=== PATIENT | male | born 2000 | race Caucasian/White ===

== ENCOUNTER 2021-05-27 11:37 | Outpatient (CLI) | payer OTHER, SELFPAY | END 2021-05-27 23:59 | disposition home or self-care (01) | LOC: IMMUN 05-31 11:47 | PROVIDERS: Visit Provider Family Medicine | DX: Z23 Encounter for immunization (principal) ==

== ENCOUNTER 2024-09-19 11:02 | Emergency (ER) | payer OTHER, SELFPAY ==
[2024-09-19 11:03] VITALS: BP 138/102; PULSE 96; RESP 14; TEMP 35.5; O2SAT 98; BMI 27.7
--- NOTE | 2024-09-19 11:25 | EX.ED.DYSGE1 ---
HPI <BALDEMAR [place] - Last Filed: 09/19/24 14:13> History of Present Illness Chief Complaint: Bite Narrative Narrative: Patient presenting today due to concerns for what looked like a small bite sandy to his left index finger he first noticed about 3 days ago. He just got back yesterday from a 5-day [place] trip. He lives at the [facility] and reports that he is concerned he could have been bit by a bat. He did not see a bat in his dorm room, he did not see a bat while in [place]. He reports that while staying in [place] he was in a clean air B&B. He otherwise is feeling well, he has had no fevers or chills. [facility] <BALDEMAR Birmingham - Last Filed: 09/19/24 14:13> [facility] Medical History (Updated 09/19/24 @ 12:26 by Roxana Craig) Insect bite Allergy/AdvReac Type Severity Reaction Status Date / Time shrimp Allergy Hives Verified 09/19/24 11:04 Social History Smoking Status: Unknown if ever smoked ROS <BALDEMAR [place] - Last Filed: 09/19/24 14:13> ROS ED Constitutional Constitutional ED: Denies chills or fever(s) Cardiovascular Cardiovascular: Denies chest pain Respiratory/Chest Respiratory/Chest: Denies dyspnea Gastrointestinal Gastrointestinal: Denies abdominal pain, nausea or vomiting Integumentary Reports Abrasions; Denies rash Neurologic Neurologic: Denies paresthesias EXAM <BALDEMAR [place] Last Filed: 09/19/24 14:13> Physical Exam Const Vital Signs: 09/19/24 11:03 Temperature 96 F L Temperature Source Temporal Pulse Rate 96 Respiratory Rate 14 Blood Pressure 138/102 H Blood Pressure Mean 114 Pulse Ox 98 Oxygen Delivery Method Room Air Positive well nourished, well developed and no apparent distress General Appearance ED: well developed HEENT Reports normocephalic and head/scalp atraumatic Mouth ED: Yes moist mucous membranes normal Eyes PERRL and EOMs intact bilaterally Neck full ROM and supple Chest Wall inspection of chest normal Resp normal respiratory effort and clear to auscultation bilaterally Cardio regular rate and regular rhythm Back/Spine normal ROM and normal to inspection Extremity normal to inspection and full ROM Extremity Narrative: Full range of motion to the left index finger, left radial pulse 2+, no signs of infection. Neuro moves all extremities, no focal motor deficits and no sensory deficits noted Sensorium / Orientation: awake and alert Psych mental status grossly normal and thought process normal Skin no rashes or lesions noted and no wounds Skin Narrative: 1 small superficial area to the left index finger consistent with skin irritation/bug bite, no rash, warmth, fluctuance, or signs of infection. <Dr. Jam Pate MD - Last Filed: 09/19/24 15:49> Physical Exam Const Vital Signs: 09/19/24 11:03 Temperature 96 F L Temperature Source Temporal Pulse Rate 96 Respiratory Rate 14 Blood Pressure 138/102 H Blood Pressure Mean 114 Pulse Ox 98 Oxygen Delivery Method Room Air MDM <BALDEMAR [place] - Last Filed: 09/19/24 14:13> [facility] Narrative Medical decision making narrative: Patient presenting today due to concerns for possible bat bite to his left index finger that he first noticed 3 days ago. He just got back from a 5-day trip to [place] and noticed it while there. He did not see any bats or see any bug bite him. He stays in a dorm at the [facility], he has not seen any bats in his dorm room. He noticed a small what looked like a bug bite to the radial aspect of his left index finger and became concerned, prompting him to come in. On exam there is a very superficial abrasion/possible bug bite but does not look consistent with a bat bite, patient did not see a bat in his room nor did he see a bat bite him. I do not feel that it is appropriate to treat him for a bat bite given this. His finger does not appear infected. He is otherwise nontoxic-appearing. Recommended he follow-up with his PCP, return instructions discussed and patient discharged home in stable condition. <Dr. Jam Pate MD - Last Filed: 09/19/24 15:49> [facility] Treatment and Re-Evaluation Comments:: I have personally performed a face to face assessment of the patient and have reviewed the EDWIN Note. I performed a substantive portion of the visit including all aspects of the following. My zuniga findings include: History is mildly pruritic spot with redness left index finger for 5 days, started while he was in [place]. No systemic symptoms. Looks better now than it did yesterday and a picture he shows me Exam is barely visible spot on the radial aspect of his left index finger. No surrounding erythema. Picture he shows me yesterday showed a single sandy surrounded by less than half a centimeter of erythema. There is no lymphangitis signs of infection abscess or limited range of motion of the finger. Medical Decison Making reassured this is inconsistent with a bat bite as the patient was concerned about that. No rabies prophylaxis indicated at this time. He is reassured. Other additions or changes: [None] Discharge Plan Triage Chief Complaint: Bite ED Midlevel Provider: Yuni Ivy ED Provider: Jam Pate Dx/Rx/DC Orders Clinical Impression: Insect bite of finger Instructions: ED Insect Bite Primary Care Provider: Care Physician,No Primary Referrals: Care Physician,No Primary [Primary Care Provider] - Activity Restrictions/Additional Instructions: Follow-up with your PCP as needed and return for any other concerns Print Language: [place] Disposition Disposition: Home, Self Care Discharge Date/Time: 09/19/24 12:28
== END 2024-09-19 12:28 | disposition home or self-care (01) ==
PROVIDERS: Emergency Provider Emergency Medicine; Visit Provider Emergency Medicine
DX: S60.461A Insect bite (nonvenomous) of left index finger, initial encounter (principal); W57.XXXA Bitten or stung by nonvenomous insect and other nonvenomous arthropods, initial encounter
CPT/HCPCS: 99282